=== PATIENT | male | born 2000 | race Caucasian/White ===

== ENCOUNTER 2024-07-14 19:57 | Emergency (ER) | payer BC, MEDICAID ==
[~2024-07-14] VITALS: Ht 180.3 cm; Wt 104.0 kg
[2024-07-14 20:06] VITALS: O2SAT 100
[2024-07-14] MEDS: KETOROLAC 15MG/ML VIAL IM ONE (20:50)
[2024-07-14 21:37] VITALS: BP 109/76; PULSE 66; RESP 15; TEMP 37.00296; O2SAT 99
== END 2024-07-14 21:42 | disposition home or self-care (01) ==
LOC: ER 19:57
DX: R51.9 Headache, unspecified (principal)
CPT/HCPCS: 96372; 99283; J1885; Z7610

== ENCOUNTER 2024-10-02 21:02 | Emergency (ER) | payer BC, MEDICAID ==
[~2024-10-02] VITALS: Ht 180.3 cm; Wt 98.0 kg
[2024-10-02 21:08] VITALS: TEMP 36.7; O2SAT 99
[2024-10-02 21:40] LABS: BASOPHILS % 0.4 % (0.0-2.0); EOSINOPHILS % 1.6 % (0.0-5.0); HEMATOCRIT. 44.3 % (42.0-52.0); HEMOGLOBIN. 15.1 g/dL (14.0-18.0); LYMPHOCYTES % 28.2 % (20.0-50.0); MEAN CORPUSCULAR HEMOGLOBIN 27.5 pg (28.0-32.0); MEAN CORPUSCULAR HGB CONC 34.1 g/dL (31.0-37.0); MEAN CORPUSCULAR VOLUME 80.8 fL (80.0-94.0); MEAN PLATELET VOLUME 9.4 fl (7.4-10.4); MONOCYTES % 5.4 % (2.0-8.0); NEUTROPHILS % 64.4 % (40.0-76.0); PLATELET 286 x1000/uL (130-400); RED BLOOD CELL COUNT 5.48 mill/uL (4.7-6.1); RED CELL DISTRIBUTION WIDTH 13.5 % (11.6-14.6); WHITE BLOOD COUNT 10.2 x1000/uL (4.5-11.0)
[2024-10-02 21:47] LABS: CHLORIDE 105 mEq/L (98-107); POTASSIUM 3.1 mEq/L (3.5-5.1); SODIUM 141 mEq/L (136-145)
[2024-10-02 21:48] LABS: CALCIUM 10.5 mg/dL (8.7-10.4); CARBON DIOXIDE 26 mEq/L (21-32)
[2024-10-02 21:53] LABS: GLUCOSE 112 mg/dL (70-105); UREA NITROGEN BLOOD 16 mg/dL (9-23)
[2024-10-02 21:55] LABS: ALANINE AMINOTRANSFERASE 16 IU/L (10-49); ALBUMIN 4.7 g/dL (3.2-4.8); ASPARTATE AMINOTRANSFERASE 16 IU/L (<34); TROPONIN I HIGH SENSITIVITY < 4 ng/L (3.0-53)
[2024-10-02] MEDS: LORAZEPAM 1MG TABLET PO ONE (22:22)
[2024-10-02 22:25] VITALS: BP 123/82; PULSE 65; RESP 16; O2SAT 98
== END 2024-10-02 22:28 | disposition home or self-care (01) ==
LOC: ER 21:02
DX: R00.2 Palpitations (principal); F41.9 Anxiety disorder, unspecified
CPT/HCPCS: 36415; 80053; 84484; 85025; 93005; 99284

== ENCOUNTER 2025-04-15 13:35 | Emergency (ER) | payer MEDICAID ==
[~2025-04-15] VITALS: Ht 180.3 cm; Wt 113.0 kg
[2025-04-15 13:40] VITALS: O2SAT 97
[2025-04-15 14:33] LABS: BASOPHILS % 0.2 % (0.0-2.0); EOSINOPHILS % 0.4 % (0.0-5.0); HEMATOCRIT. 43.2 % (42.0-52.0); HEMOGLOBIN. 14.7 g/dL (14.0-18.0); LYMPHOCYTES % 15.4 % (20.0-50.0); MEAN PLATELET VOLUME 9.1 fl (7.4-10.4); MONOCYTES % 3.7 % (2.0-8.0); NEUTROPHILS % 80.3 % (40.0-76.0); PLATELET 318 x1000/uL (130-400); RED BLOOD CELL COUNT 5.31 mill/uL (4.7-6.1); RED CELL DISTRIBUTION WIDTH 13.1 % (11.6-14.6)
[2025-04-15 14:47] LABS: CREATININE 1.0 mg/dL (0.6-1.3)
[2025-04-15 14:48] LABS: UREA NITROGEN BLOOD 14 mg/dL (9-23)
[2025-04-15 14:50] LABS: ASPARTATE AMINOTRANSFERASE 17 IU/L (<34); BILIRUBIN DIRECT 0.2 mg/dL (<=3.0); BILIRUBIN TOTAL 0.9 mg/dL (0.1-1.0); PROTEIN TOTAL 7.8 g/dL (6.0-8.3)
[2025-04-15] MEDS ORDERED: FAMO-135 MT (15:32)
[2025-04-15] MEDS: ONDANSETRON 4MG ODT PO ONE (15:35)
[2025-04-15] MEDS: MAGNESIUM/ALUMINUM HYDROXIDE/SIMETHICONE 30ML UDC PO ONE (15:35)
[2025-04-15] MEDS: IBUPROFEN 600MG TABLET PO ONE (15:38)
[2025-04-15] MEDS: ACETAMINOPHEN 325MG TABLET PO ONE (15:39)
[2025-04-15 15:40] VITALS: BP 119/79; PULSE 96; RESP 18; TEMP 37.1; O2SAT 97
== END 2025-04-15 15:47 | disposition home or self-care (01) ==
LOC: ER 13:35
DX: K29.70 Gastritis, unspecified, without bleeding (principal)
CPT/HCPCS: 99283; 80076; 80048; 83690; 85025; 36415; Q0162